=== PATIENT | male | born 2000 | race Caucasian/White ===

== ENCOUNTER 2018-10-01 22:23 | Inpatient (IN) | payer OTHER, MEDICAID ==
[2018-10-01 22:52] LABS: ADD MAN DIFF? NO
[2018-10-01] MEDS: SOD CHLORIDE 0.9% 1,000 ML IV (22:56)
[2018-10-01] MEDS: MAGNESIUM SULFATE 2 GM/50 ML 50 ML IVPB (22:56)
[2018-10-01 22:59] LABS: WHITE BLOOD COUNT 8.7 10^3/ul (4.8-10.8)
[2018-10-01 22:59] LABS: BASOPHIL # 0.1 10^3/ul (0.0-0.1); EOSINOPHILS % 0.1 % (0.0-7.0); HEMATOCRIT 51.3 % (42.0-52.0); HEMOGLOBIN 17.3 g/dl (14.0-18.0); LYMPHOCYTES # 3.5 10^3/ul (0.8-2.9); LYMPHOCYTES % 40.4 % (18.0-55.0); MEAN CORPUSCULAR HEMOGLOBIN 30.3 pg (29.0-33.0); MEAN CORPUSCULAR HGB CONC 33.7 g/dl (32.0-37.0); MEAN CORPUSCULAR VOLUME 89.8 fl (72.0-104.0); MEAN PLATELET VOLUME 11.4 fl (7.4-10.4); MODE ROOM AIR; MONOCYTE # 0.6 10^3/ul (0.3-0.9); MONOCYTES % 6.6 % (0.0-13.0); MetHgb Venous 0.4 %; NEUTROPHIL # 4.3 10^3/ul (1.6-7.5); NEUTROPHILS % 49.7 % (30.0-74.0); PLATELET COUNT 266 10^3/UL (140-415); RED BLOOD COUNT 5.71 10^6/ul (4.70-6.10); RED CELL DISTRIBUTION WIDTH 11.8 % (11.5-14.5); Sample Type Blood venous; Site VENOUS LINE; Venous COHb 0.5 %; Venous Fraction OxyHgb 82.8 %; Venous Oxygen Sat 83.6 mmHG (55.0-75.0); Venous Total Hemglobin 17.8 g/dl
[2018-10-01 23:07] LABS: ADD UMIC YES; UR ASCORBIC ACID NEGATIVE (NEGATIVE); UR BILIRUBIN (Dip) NEGATIVE (NEGATIVE); UR BLOOD (Dip) 1+ mg/dL (NEGATIVE); UR CLARITY CLEAR (CLEAR); UR COLOR STRAW (YELLOW); UR GLUCOSE (Dip) 3+ mg/dL (NEGATIVE); UR KETONES (Dip) 2+ mg/dL (NEGATIVE); UR LEUKOCYTE ESTERASE (Dip) NEGATIVE Leu/ul (NEGATIVE); UR MUCUS FEW /HPF (NONE SEEN); UR NITRITE (Dip) NEGATIVE (NEGATIVE); UR RBC 0 /HPF (0-5); UR SPECIFIC GRAVITY (Dip) 1.031 (1.003-1.030); UR TOTAL PROTEIN (Dip) 1+ mg/dl (NEGATIVE); UR UROBILINOGEN (Dip) NEGATIVE (NEGATIVE); UR WBC 0 /HPF (0-5)
[2018-10-01] MEDS: NA BICARBONATE 8.4% 50 ML SYG IV (23:11)
[2018-10-01 23:19] LABS: INR 0.98; PROTIME 13.1 Sec (11.9-14.9)
[2018-10-01 23:20] LABS: AMPHETAMINE/METHAMPHETAMINE Negative (NEGATIVE); BARBITURATES Negative (NEGATIVE); BENZODIAZEPINES Negative (NEGATIVE); CANNABINOIDS Negative (NEGATIVE); COCAINE Negative (NEGATIVE); OPIATES Negative (NEGATIVE)
[2018-10-01 23:27] LABS: PHOSPHORUS 3.7 mg/dl (2.5-4.9)
[2018-10-01 23:27] LABS: CHLORIDE 104 mmol/L (97-110); MAGNESIUM 2.1 mg/dl (1.7-2.5); POTASSIUM 4.1 mmol/L (3.5-5.1); SODIUM 139 mmol/L (135-144)
[2018-10-01] MEDS ORDERED: ONDANSETRON 4 MG INJ (23:27)
[2018-10-01 23:28] LABS: ALANINE AMINOTRANSFERASE 14 IU/L (13-69); ALBUMIN 5.3 g/dl (3.3-4.9); ALBUMIN/GLOBULIN RATIO 1.32; ALKALINE PHOSPHATASE 108 IU/L (42-121); ANION GAP 28 (5-13); ASPARTATE AMINO TRANSFERASE 22 IU/L (15-46); BILIRUBIN,INDIRECT 0.4 mg/dl (0-1.1); BILIRUBIN,TOTAL 0.4 mg/dl (0.2-1.3); BLOOD UREA NITROGEN 11 mg/dl (7-20); CALCIUM 9.4 mg/dl (8.4-10.2); CREATININE 0.75 mg/dl (0.61-1.24); Estimated GFR > 60 mL/min (>60); GLUCOSE 359 mg/dl (70-220); TOTAL PROTEIN 9.3 g/dl (6.1-8.1)
[2018-10-01] MEDS: ONDANSETRON 4 MG INJ IV (23:30)
[2018-10-01 23:32] LABS: CARBON DIOXIDE 7 mmol/L (21-31)
[2018-10-01 23:38] LABS: TROPONIN-I 0.021 ng/ml (0.000-0.120)
[2018-10-02] MEDS ORDERED: NS + KCL 40 MEQ 1,000 ML IV (00:07)
[2018-10-02] MEDS ORDERED: D10/0.45% NACL + KCL 40 MEQ 1,000 ML IV (00:07)
[2018-10-02] MEDS ORDERED: SOD CHLORIDE 0.9% 1,000 ML IV (00:07)
[2018-10-02] MEDS ORDERED: DEXTROSE 10%/0.45% NACL 1,000 ML IV (00:07)
[2018-10-02] MEDS: LACTATED RINGER S IV (00:16)
[2018-10-02] MEDS ORDERED: DEXTROSE 50% 50 ML SYRINGE IV ×4 (00:30→13:00)
[2018-10-02] MEDS: NS + KCL 30 MEQ 1,000 ML IV ×3 (01:09→17:18)
[2018-10-02] MEDS: D10/0.45% NACL + KCL 30 MEQ 1,000 ML IV ×2 (01:09→08:54)
[2018-10-02] MEDS: INSULIN REGULAR, HUMAN 100 UNIT in SOD CHLORIDE 0.9% 100 ML IV ×2 (01:11→14:14)
[2018-10-02 01:27] LABS: HEMOGLOBIN A1C 13.4 % (0-5.9)
[2018-10-02 01:27] LABS: ANION GAP 24 (5-13); BLOOD UREA NITROGEN 9 mg/dl (7-20); CHLORIDE 108 mmol/L (97-110); CREATININE 0.49 mg/dl (0.61-1.24); Estimated GFR > 60 mL/min (>60); GLUCOSE 272 mg/dl (70-220); MAGNESIUM 2.3 mg/dl (1.7-2.5); PHOSPHORUS 2.6 mg/dl (2.5-4.9); POTASSIUM 3.8 mmol/L (3.5-5.1); SODIUM 141 mmol/L (135-144)
[2018-10-02] MEDS ORDERED: ALBUTEROL/IPRATROPIUM (NEB) 3 ML AMP NEB (01:30)
[2018-10-02] MEDS ORDERED: ONDANSETRON 4 MG INJ IV (01:30)
[2018-10-02] MEDS ORDERED: ACETAMINOPHEN 650MG/20.3ML CUP PO (01:30)
[2018-10-02 01:34] LABS: CARBON DIOXIDE 9 mmol/L (21-31)
[2018-10-02 03:31] LABS: ANION GAP 21 (5-13); BLOOD UREA NITROGEN 7 mg/dl (7-20); CALCIUM 7.7 mg/dl (8.4-10.2); CHLORIDE 114 mmol/L (97-110); CREATININE 0.45 mg/dl (0.61-1.24); Estimated GFR > 60 mL/min (>60); GLUCOSE 300 mg/dl (70-220); MAGNESIUM 2.1 mg/dl (1.7-2.5); PHOSPHORUS 2.5 mg/dl (2.5-4.9); POTASSIUM 3.8 mmol/L (3.5-5.1); SODIUM 142 mmol/L (135-144)
[2018-10-02 03:35] LABS: CARBON DIOXIDE 7 mmol/L (21-31)
[2018-10-02 03:47] LABS: MODE ROOM AIR; MetHgb Venous 0.3 %; Sample Type Blood venous; Site VENOUS LINE; Venous COHb 0.3 %; Venous Fraction OxyHgb 71.9 %; Venous Oxygen Sat 72.3 mmHG (55.0-75.0)
[2018-10-02 05:44] LABS: MODE ROOM AIR; MetHgb Venous 0.4 %; Sample Type Blood venous; Site VENOUS LINE; Venous COHb 0.4 %; Venous Fraction OxyHgb 72.9 %; Venous Oxygen Sat 73.5 mmHG (55.0-75.0); Venous Total Hemglobin 15.2 g/dl
[2018-10-02 06:35] LABS: CREATINE KINASE 38 IU/L (23-200)
[2018-10-02 06:41] LABS: CK INDEX 2.3; CK-MB 0.86 ng/ml (0.0-2.4); TROPONIN-I < 0.012 ng/ml (0.000-0.120)
[2018-10-02 08:25] LABS: ANION GAP 12 (5-13); BLOOD UREA NITROGEN 5 mg/dl (7-20); CALCIUM 7.8 mg/dl (8.4-10.2); CARBON DIOXIDE 12 mmol/L (21-31); CHLORIDE 116 mmol/L (97-110); CREATININE 0.46 mg/dl (0.61-1.24); Estimated GFR > 60 mL/min (>60); GLUCOSE 340 mg/dl (70-220); MAGNESIUM 2.2 mg/dl (1.7-2.5); PHOSPHORUS 1.5 mg/dl (2.5-4.9); POTASSIUM 3.9 mmol/L (3.5-5.1); SODIUM 140 mmol/L (135-144)
[2018-10-02] MEDS: FAMOTIDINE 20 MG INJ IV ×2 (08:54→20:08)
[2018-10-02] MEDS: HEPARIN 5,000 UNIT/1 ML VIAL SC ×2 (09:04→20:11)
[2018-10-02 09:57] LABS: MODE ROOM AIR; MetHgb Venous 0.3 %; Site VENOUS LINE; Venous COHb 1.6 %; Venous Fraction OxyHgb 87.2 %; Venous Oxygen Sat 88.9 mmHG (55.0-75.0); Venous Total Hemglobin 15.2 g/dl
[2018-10-02 12:10] LABS: MAGNESIUM 2.1 mg/dl (1.7-2.5)
[2018-10-02 12:10] LABS: PHOSPHORUS 1.2 mg/dl (2.5-4.9)
[2018-10-02 12:11] LABS: CREATINE KINASE 42 IU/L (23-200)
[2018-10-02 12:20] LABS: CK INDEX 2.3; CK-MB 0.98 ng/ml (0.0-2.4); TROPONIN-I < 0.012 ng/ml (0.000-0.120)
[2018-10-02 12:31] LABS: ANION GAP 9 (5-13); BLOOD UREA NITROGEN 4 mg/dl (7-20); CALCIUM 7.9 mg/dl (8.4-10.2); CARBON DIOXIDE 14 mmol/L (21-31); CHLORIDE 119 mmol/L (97-110); CREATININE 0.35 mg/dl (0.61-1.24); Estimated GFR > 60 mL/min (>60); GLUCOSE 202 mg/dl (70-220); POTASSIUM 3.6 mmol/L (3.5-5.1); SODIUM 142 mmol/L (135-144)
[2018-10-02 12:35] LABS: AADO2 Venous 79.6 mmHg; MODE ROOM AIR; MetHgb Venous 0.4 %; Sample Type Blood venous; Site OTHER; Venous COHb 0.8 %; Venous Fraction OxyHgb 53.5 %; Venous Oxygen Sat 54.1 mmHG (55.0-75.0); Venous Total Hemglobin 14.8 g/dl
[2018-10-02] MEDS ORDERED: GLUCAGON 1 MG INJ IM (13:00)
[2018-10-02] MEDS ORDERED: GLUCOSE GEL 15 GRAM TUBE PO ×2 (13:00)
[2018-10-02] MEDS ORDERED: GLUCOSE GEL 15 GRAM TUBE BUCCAL (13:00)
[2018-10-02] MEDS: POTASSIUM PHOSPHATE 60 MEQ in SOD CHLORIDE 0.9% 500 ML IVPB (13:01)
[2018-10-02] MEDS: INSULIN GLARGINE [LANTus] (100 UNITS/ML) SYG SC (14:43)
[2018-10-02] MEDS: INSULIN ASPART [NOVOLOG] 3 ML PEN SC ×3 (17:18→20:10)
[2018-10-03] MEDS ORDERED: ACCU-CHEK XX (02:00)
[2018-10-03] MEDS: ACCU-CHEK XX (02:00)
[2018-10-03 05:21] LABS: ADD MAN DIFF? NO
[2018-10-03 05:26] LABS: WHITE BLOOD COUNT 5.2 10^3/ul (4.8-10.8)
[2018-10-03 05:26] LABS: BASOPHILS % 0.4 % (0.0-2.0); EOSINOPHILS # 0.1 10^3/ul (0.0-0.5); EOSINOPHILS % 1.3 % (0.0-7.0); HEMATOCRIT 36.9 % (42.0-52.0); HEMOGLOBIN 12.9 g/dl (14.0-18.0); LYMPHOCYTES # 3.5 10^3/ul (0.8-2.9); LYMPHOCYTES % 66.9 % (18.0-55.0); MEAN CORPUSCULAR HEMOGLOBIN 30.4 pg (29.0-33.0); MEAN CORPUSCULAR VOLUME 86.8 fl (72.0-104.0); MEAN PLATELET VOLUME 11.7 fl (7.4-10.4); MONOCYTE # 0.4 10^3/ul (0.3-0.9); MONOCYTES % 7.5 % (0.0-13.0); NEUTROPHIL # 1.2 10^3/ul (1.6-7.5); NEUTROPHILS % 23.7 % (30.0-74.0); PLATELET COUNT 181 10^3/UL (140-415); RED BLOOD COUNT 4.25 10^6/ul (4.70-6.10); RED CELL DISTRIBUTION WIDTH 12.3 % (11.5-14.5)
[2018-10-03 05:46] LABS: ALANINE AMINOTRANSFERASE 26 IU/L (13-69); ALKALINE PHOSPHATASE 55 IU/L (42-121); ANION GAP 8 (5-13); ASPARTATE AMINO TRANSFERASE 14 IU/L (15-46); BILIRUBIN,INDIRECT 0.8 mg/dl (0-1.1); BILIRUBIN,TOTAL 0.8 mg/dl (0.2-1.3); BLOOD UREA NITROGEN 7 mg/dl (7-20); CALCIUM 8.3 mg/dl (8.4-10.2); CARBON DIOXIDE 18 mmol/L (21-31); CHLORIDE 112 mmol/L (97-110); CHOL/HDL RATIO 4.5 RATIO; CHOLESTEROL 164 mg/dl (100-200); Estimated GFR > 60 mL/min (>60); GLUCOSE 215 mg/dl (70-220); HDL CHOLESTEROL 36 mg/dl (30-63); LDL CHOLESTEROL,CALCULATED 108 mg/dl; PHOSPHORUS 2.7 mg/dl (2.5-4.9); POTASSIUM 3.2 mmol/L (3.5-5.1); SODIUM 138 mmol/L (135-144); TOTAL PROTEIN 5.5 g/dl (6.1-8.1); TRIGLYCERIDES 101 mg/dl (0-149)
[2018-10-03] MEDS ORDERED: INSULIN GLARGINE [LANTus] (100 UNITS/ML) SYG SC (08:00)
[2018-10-03] MEDS: INSULIN ASPART [NOVOLOG] 3 ML PEN SC ×7 (08:38→22:08)
[2018-10-03] MEDS: HEPARIN 5,000 UNIT/1 ML VIAL SC ×2 (08:39→22:08)
[2018-10-03] MEDS: FAMOTIDINE 20 MG INJ IV (08:41)
[2018-10-03] MEDS: INSULIN GLARGINE [LANTus] (100 UNITS/ML) SYG SC (11:11)
[2018-10-03] MEDS: POTASSIUM CHLORIDE (SR) 20 MEQ TAB PO (12:37)
[2018-10-03] MEDS: FAMOTIDINE 20 MG TAB PO (22:04)
[2018-10-04] MEDS: ACCU-CHEK XX (02:33)
[2018-10-04 05:18] LABS: ADD MAN DIFF? NO
[2018-10-04 05:24] LABS: ABNORMAL IP MESSAGE 1; BASOPHILS % 0.4 % (0.0-2.0); EOSINOPHILS # 0.1 10^3/ul (0.0-0.5); EOSINOPHILS % 1.4 % (0.0-7.0); HEMOGLOBIN 13.9 g/dl (14.0-18.0); LYMPHOCYTES # 3.7 10^3/ul (0.8-2.9); LYMPHOCYTES % 72.9 % (18.0-55.0); MEAN CORPUSCULAR HEMOGLOBIN 30.5 pg (29.0-33.0); MEAN CORPUSCULAR HGB CONC 35.6 g/dl (32.0-37.0); MEAN CORPUSCULAR VOLUME 85.7 fl (72.0-104.0); MEAN PLATELET VOLUME 11.6 fl (7.4-10.4); MONOCYTE # 0.4 10^3/ul (0.3-0.9); MONOCYTES % 8.2 % (0.0-13.0); NEUTROPHIL # 0.9 10^3/ul (1.6-7.5); NEUTROPHILS % 16.9 % (30.0-74.0); PLATELET COUNT 196 10^3/UL (140-415); POSITIVE DIFF @See below; RED BLOOD COUNT 4.55 10^6/ul (4.70-6.10); RED CELL DISTRIBUTION WIDTH 12.2 % (11.5-14.5)
[2018-10-04 06:12] LABS: ANION GAP 8 (5-13); BLOOD UREA NITROGEN 11 mg/dl (7-20); CALCIUM 8.7 mg/dl (8.4-10.2); CARBON DIOXIDE 23 mmol/L (21-31); CHLORIDE 108 mmol/L (97-110); CREATININE 0.39 mg/dl (0.61-1.24); Estimated GFR > 60 mL/min (>60); GLUCOSE 199 mg/dl (70-220); SODIUM 139 mmol/L (135-144)
[2018-10-04 06:36] LABS: MAGNESIUM 2.1 mg/dl (1.7-2.5)
[2018-10-04 06:36] LABS: PHOSPHORUS 4.5 mg/dl (2.5-4.9)
[2018-10-04] MEDS: FAMOTIDINE 20 MG TAB PO ×2 (08:36→20:38)
[2018-10-04] MEDS: INSULIN ASPART [NOVOLOG] 3 ML PEN SC ×7 (08:39→20:43)
[2018-10-04] MEDS: INSULIN GLARGINE [LANTus] (100 UNITS/ML) SYG SC (08:41)
[2018-10-04] MEDS: HEPARIN 5,000 UNIT/1 ML VIAL SC ×2 (08:42→20:44)
[2018-10-04] MEDS: POTASSIUM CHLORIDE (SR) 20 MEQ TAB PO (13:33)
[2018-10-05] MEDS: ACCU-CHEK XX (02:00)
[2018-10-05 05:50] LABS: ADD MAN DIFF? NO
[2018-10-05 05:54] LABS: WHITE BLOOD COUNT 4.6 10^3/ul (4.8-10.8)
[2018-10-05 05:54] LABS: ABNORMAL IP MESSAGE 1; BASOPHILS % 0.4 % (0.0-2.0); EOSINOPHILS # 0.1 10^3/ul (0.0-0.5); EOSINOPHILS % 1.3 % (0.0-7.0); HEMATOCRIT 39.5 % (42.0-52.0); HEMOGLOBIN 13.7 g/dl (14.0-18.0); LYMPHOCYTES # 3.6 10^3/ul (0.8-2.9); MEAN CORPUSCULAR HEMOGLOBIN 30.2 pg (29.0-33.0); MEAN CORPUSCULAR HGB CONC 34.7 g/dl (32.0-37.0); MEAN PLATELET VOLUME 11.8 fl (7.4-10.4); MONOCYTE # 0.3 10^3/ul (0.3-0.9); MONOCYTES % 6.3 % (0.0-13.0); NEUTROPHIL # 0.6 10^3/ul (1.6-7.5); PLATELET COUNT 198 10^3/UL (140-415); POSITIVE DIFF @See below; RED BLOOD COUNT 4.54 10^6/ul (4.70-6.10); RED CELL DISTRIBUTION WIDTH 12.3 % (11.5-14.5)
[2018-10-05 06:39] LABS: ANION GAP 8 (5-13); BLOOD UREA NITROGEN 10 mg/dl (7-20); CALCIUM 8.9 mg/dl (8.4-10.2); CARBON DIOXIDE 25 mmol/L (21-31); CHLORIDE 109 mmol/L (97-110); CREATININE 0.35 mg/dl (0.61-1.24); Estimated GFR > 60 mL/min (>60); GLUCOSE 129 mg/dl (70-220); POTASSIUM 3.4 mmol/L (3.5-5.1); SODIUM 142 mmol/L (135-144)
[2018-10-05] MEDS: INSULIN ASPART [NOVOLOG] 3 ML PEN SC ×7 (08:41→20:29)
[2018-10-05] MEDS: FAMOTIDINE 20 MG TAB PO ×2 (08:42→20:29)
[2018-10-05] MEDS: HEPARIN 5,000 UNIT/1 ML VIAL SC (08:42)
[2018-10-05] MEDS: INSULIN GLARGINE [LANTus] (100 UNITS/ML) SYG SC ×2 (09:31→20:28)
[2018-10-06] MEDS: ACCU-CHEK XX (02:08)
[2018-10-06] MEDS: SOD CHLORIDE 0.9% 1,000 ML IV (02:12)
[2018-10-06] MEDS: SOD CHLORIDE 0.9% 500 ML IV (02:16)
[2018-10-06 05:08] LABS: ADD MAN DIFF? NO
[2018-10-06 05:12] LABS: ABNORMAL IP MESSAGE 1; BASOPHILS % 0.5 % (0.0-2.0); EOSINOPHILS # 0.1 10^3/ul (0.0-0.5); EOSINOPHILS % 1.2 % (0.0-7.0); HEMATOCRIT 34.2 % (42.0-52.0); HEMOGLOBIN 11.3 g/dl (14.0-18.0); LYMPHOCYTES # 2.9 10^3/ul (0.8-2.9); MEAN CORPUSCULAR HEMOGLOBIN 29.9 pg (29.0-33.0); MEAN CORPUSCULAR VOLUME 90.5 fl (72.0-104.0); MEAN PLATELET VOLUME 11.9 fl (7.4-10.4); MONOCYTE # 0.4 10^3/ul (0.3-0.9); NEUTROPHIL # 0.8 10^3/ul (1.6-7.5); NEUTROPHILS % 19.1 % (30.0-74.0); PLATELET COUNT 160 10^3/UL (140-415); POSITIVE DIFF @See below; RED BLOOD COUNT 3.78 10^6/ul (4.70-6.10); RED CELL DISTRIBUTION WIDTH 12.5 % (11.5-14.5)
[2018-10-06 05:12] LABS: WHITE BLOOD COUNT 4.2 10^3/ul (4.8-10.8)
[2018-10-06 05:38] LABS: MAGNESIUM 1.9 mg/dl (1.7-2.5)
[2018-10-06 05:38] LABS: PHOSPHORUS 4.3 mg/dl (2.5-4.9)
[2018-10-06 05:39] LABS: ANION GAP 5 (5-13); BLOOD UREA NITROGEN 11 mg/dl (7-20); CALCIUM 7.6 mg/dl (8.4-10.2); CARBON DIOXIDE 24 mmol/L (21-31); CHLORIDE 113 mmol/L (97-110); Estimated GFR > 60 mL/min (>60); GLUCOSE 135 mg/dl (70-220); POTASSIUM 3.5 mmol/L (3.5-5.1); SODIUM 142 mmol/L (135-144)
[2018-10-06] MEDS ORDERED: FAMOTIDINE 20 MG INJ (08:37)
[2018-10-06] MEDS: INSULIN ASPART [NOVOLOG] 3 ML PEN SC ×7 (09:10→20:34)
[2018-10-06] MEDS: INSULIN GLARGINE [LANTus] (100 UNITS/ML) SYG SC ×2 (09:10→20:05)
[2018-10-06] MEDS: FAMOTIDINE 20 MG TAB PO ×2 (09:27→20:06)
[2018-10-07] MEDS: ACCU-CHEK XX (01:32)
[2018-10-07 05:31] LABS: ADD MAN DIFF? NO
[2018-10-07 05:36] LABS: BASOPHILS % 0.4 % (0.0-2.0); EOSINOPHILS # 0.1 10^3/ul (0.0-0.5); EOSINOPHILS % 1.4 % (0.0-7.0); HEMATOCRIT 38.3 % (42.0-52.0); HEMOGLOBIN 12.9 g/dl (14.0-18.0); LYMPHOCYTES # 3.2 10^3/ul (0.8-2.9); LYMPHOCYTES % 65.9 % (18.0-55.0); MEAN CORPUSCULAR HEMOGLOBIN 30.1 pg (29.0-33.0); MEAN CORPUSCULAR HGB CONC 33.7 g/dl (32.0-37.0); MEAN CORPUSCULAR VOLUME 89.5 fl (72.0-104.0); MONOCYTE # 0.4 10^3/ul (0.3-0.9); NEUTROPHIL # 1.2 10^3/ul (1.6-7.5); NEUTROPHILS % 24.3 % (30.0-74.0); PLATELET COUNT 179 10^3/UL (140-415); RED BLOOD COUNT 4.28 10^6/ul (4.70-6.10); RED CELL DISTRIBUTION WIDTH 12.6 % (11.5-14.5)
[2018-10-07 05:36] LABS: WHITE BLOOD COUNT 4.9 10^3/ul (4.8-10.8)
[2018-10-07 06:26] LABS: ANION GAP 6 (5-13); BLOOD UREA NITROGEN 14 mg/dl (7-20); CALCIUM 9.2 mg/dl (8.4-10.2); CARBON DIOXIDE 26 mmol/L (21-31); CHLORIDE 107 mmol/L (97-110); CREATININE 0.52 mg/dl (0.61-1.24); Estimated GFR > 60 mL/min (>60); GLUCOSE 222 mg/dl (70-220); POTASSIUM 4.4 mmol/L (3.5-5.1); SODIUM 139 mmol/L (135-144)
[2018-10-07] MEDS: INSULIN GLARGINE [LANTus] (100 UNITS/ML) SYG SC (08:21)
[2018-10-07] MEDS: FAMOTIDINE 20 MG TAB PO (08:22)
[2018-10-07] MEDS: INSULIN ASPART [NOVOLOG] 3 ML PEN SC ×6 (08:27→17:39)
[2018-10-07] MEDS: LISINOPRIL 5 MG TAB PO (17:28)
== END 2018-10-07 17:45 | disposition home or self-care (01) | DRG 639 ==
LOC: ICU 10-06 04:42 → E/R 22:23 → 6WM 10-06 21:39 → MS1 10-02 22:19
PROVIDERS: Internal Medicine
DX: E10.10 Type 1 diabetes mellitus with ketoacidosis without coma (principal); I49.8 Other specified cardiac arrhythmias; E87.6 Hypokalemia
CPT/HCPCS: 36415; 71045; 80048; 80053; 80061; 80076; 80307; 81001; 82550; 82553; 82803; 82962; 83036; 83735; 84100; 84443; 84484; 85025; 85610; 87081; 93005; 93306; 96374; 96375; 99285-25